=== PATIENT | male | born 1985 | race Caucasian/White ===

== ENCOUNTER 2023-08-16 20:46 | Inpatient (IN) | payer BC ==
[2023-08-17] MEDS ORDERED: Ondansetron PF 4 MG/2 ML Vial ONE (03:15)
[2023-08-17] MEDS ORDERED: Ketorolac Tromethamine 30 MG (1 mL) VIAL ONE (03:15)
[2023-08-17 07:54] LABS: Anion Gap 42 mmol/L (10-20); Carbon Dioxide 14 mmol/L (22-29); Chloride 84 mmol/L (98-107); Potassium 4.1 mmol/L (3.5-5.1); Sodium 136 mmol/L (136-145)
[2023-08-17 07:55] LABS: Calcium 8.2 mg/dL (7.6-10.4); Glucose 127 mg/dL (70-105)
[2023-08-17 08:23] LABS: Potassium 4.1 mmol/L (3.5-5.1); Sodium 136 mmol/L (136-145)
[2023-08-17 08:24] LABS: Albumin 4.2 g/dL (3.5-5.0); Anion Gap 42 mmol/L (10-20); BUN (Urea Nitrogen) 144 mg/dL (8.9-20.6); Bilirubin, Total 0.4 mg/dL (0.2-1.2); Calcium 8.2 mg/dL (7.6-10.4); Carbon Dioxide 14 mmol/L (22-29); Chloride 84 mmol/L (98-107); Globulin 3.7 g/dL (2.4-3.5); Glucose 127 mg/dL (70-105); Protein, Total 7.9 g/dL (6.0-8.3)
[2023-08-17 08:25] LABS: ALT (SGPT) 48 U/L (8-55); AST (SGOT) 37 U/L (5-34); Alkaline Phosphatase 105 U/L (40-110); Magnesium 3.1 mg/dL (1.6-2.6)
[2023-08-17 08:27] LABS: Calc. Creatinine Clearance 0 mL/min (70-130)
[2023-08-17 08:28] LABS: Troponin I 0.022 ng/mL (< 0.028)
[2023-08-17 08:29] LABS: Hematocrit 39.2 % (38.8-50.0); Hemoglobin 14.1 g/dL (13.5-17.5); Mean Corpuscular Hemoglobin 29.9 pg (27.0-33.0); Mean Corpuscular Volume 83.2 fl (81.2-95.1); Platelet Count 183 10x3/uL (130-400); RBC Distribution Width 12.9 % (11.5-14.5); Red Blood Cell (RBC) Count 4.71 10x6/uL (4.32-5.72); White Blood Cell (WBC) Count 7.6 10x3/uL (3.5-10.5)
[2023-08-17 08:30] LABS: %Basophils 0.3 % (0.0-2.0); %Eosinophils 0.4 % (0.0-6.0); %Lymphocytes 6.9 % (18.0-47.0); %Monocytes 5.8 % (0.0-10.0); %Neutrophils 86.3 % (40.0-75.0)
[2023-08-17 08:33] LABS: INR-International Normal Ratio 1.1; PTT 27.3 sec (22.0-33.0); Prothrombin Time 11.5 sec (9.5-12.1)
[2023-08-17] MEDS ORDERED: Ondansetron PF 4 MG/2 ML Vial IVP PRN (08:34)
[2023-08-17 08:35] LABS: BUN (Urea Nitrogen) 144 mg/dL (8.9-20.6); Calc. Creatinine Clearance 0 mL/min (70-130)
[2023-08-17] MEDS ORDERED: Senokot S 8.6-50 MG TAB PO PRN (08:36)
[2023-08-17] MEDS ORDERED: Acetaminophen 650 MG Suppository PR PRN (08:36)
[2023-08-17] MEDS ORDERED: Acetaminophen 325 MG TAB PO PRN (08:36)
[2023-08-17 08:37] LABS: Bilirubin Neg (Negative); Blood, Urine 150 (Negative); Clarity Clear (Clear); Glucose, Urine (Dipstick) 100 mg/dL (Negative); Ketone, Urine 5 mg/dL (Negative); Leukocyte 25 (Negative); Nitrite Negative (Negative); Protein, Urine (Dipstick) 500 mg/dl (Neg-Trace); Specific Gravity, Urine 1.025 (1.005-1.030); Urobilinogen Normal mg/dL (Less than 2)
[2023-08-17 08:59] LABS: Actual Bicarbonate (HCO3v) 15.7 mEq/L (22-28); Analyzer IN Cardio CS ER; Base Excess -11.3 mEq/L (-2 - +2); Calcium, Ionized (venous) 0.91 mmol/L (1.16-1.32); Chloride (VBG) 86 mmol/L (98-106); Hematocrit-VBG 41 % (42.0-52.0); Hemoglobin (Hb) 13.9 g/dL (13.2-17.3); Potassium (VBG) 4.02 mmol/L (3.70-5.30); Puncture Site Other Site; RapidComm Collect By LAB; Sodium 133 mmol/L (133-146)
[2023-08-17] MEDS ORDERED: Amlodipine 10 MG TAB PO SCH (09:00)
[2023-08-17 09:10] LABS: HBsAg Index 0.23 S/CO (0-0.99); Hep B Surf Ag Non-Reactive S/CO (NonReactive)
[2023-08-17 09:14] LABS: #Basophils 0.02 10x3/uL (0.0-0.2); #Eosinphils 0.03 10x3/uL (0.0-0.5); #Monocytes 0.44 10x3/uL (0.0-1.1); #Neutrophils 6.52 10x3/uL (1.5-8.4)
[2023-08-17 09:29] LABS: CAUTI Indications for Culture Pelvic or flank pain; Squamous Epithelial 0-3 HPF (0-3); Transitional Epithelial 0-3 HPF (None Seen)
[2023-08-17 09:30] LABS: Bacteria/HPF Rare-Few HPF (None Seen)
[2023-08-17 09:31] LABS: Urine Culture Reflex No No
[2023-08-17] MEDS ORDERED: Iopamidol 300 61% 100 ML VIAL FS ONE (12:38)
[2023-08-17 12:58] LABS: Albumin 3.2 g/dL (3.5-5.0); Anion Gap 36 mmol/L (10-20); Calcium 7.6 mg/dL (7.8-10.44); Carbon Dioxide 16 mmol/L (22-29); Chloride 85 mmol/L (98-107); Glucose 279 mg/dL (70-105); Potassium 3.7 mmol/L (3.5-5.1); Sodium 133 mmol/L (136-145)
[2023-08-17 13:08] LABS: Phosphorus 18.9 mg/dL (2.3-4.7)
[2023-08-17 13:28] LABS: BUN (Urea Nitrogen) 149 mg/dL (8.9-20.6)
[2023-08-17 13:32] LABS: Calc. Creatinine Clearance 0 mL/min (70-130)
[2023-08-17] MEDS: Sodium Bicarbonate 150 MEQ in Sterile Water 1,000 ML IV SCH (14:26)
[2023-08-17 15:36] LABS: HBSAB Concentration 679.61 mIU/mL; Hep B Core Total Ab NONREACTIVE (NonReactive); Hep B Core Total Index 0.12 S/CO (0-0.79); Hep B Surf AB REACTIVE (NonReactive); Hep C IgG Ab NONREACTIVE S/CO (NonReactive); Hep C Index 0.07 S/CO (0-0.79)
[2023-08-17] MEDS: Calcium Acetate 667 MG CAP PO SCH (18:05)
[2023-08-18] MEDS: Sodium Bicarbonate 150 mEq in Dextrose 5% IV SCH (04:01)
[2023-08-18 05:11] LABS: #Basophils 0.03 10x3/uL (0.0-0.2); #Eosinphils 0.08 10x3/uL (0.0-0.5); #Monocytes 0.45 10x3/uL (0.0-1.1); #Neutrophils 3.73 10x3/uL (1.5-8.4); %Basophils 0.6 % (0.0-2.0); %Eosinophils 1.6 % (0.0-6.0); %Lymphocytes 14.7 % (18.0-47.0); %Monocytes 8.9 % (0.0-10.0); %Neutrophils 73.8 % (40.0-75.0); Hematocrit 33.5 % (38.8-50.0); Hemoglobin 12.1 g/dL (13.5-17.5); Mean Corpuscular HGB CONC 36.1 g/dL (32.0-36.0); Mean Corpuscular Volume 82.9 fl (81.2-95.1); Mean Platelet Volume 9.9 fl (7.4-10.4); Platelet Count 138 10x3/uL (150-450); RBC Distribution Width 12.9 % (11.5-14.5); Red Blood Cell (RBC) Count 4.04 10x6/uL (4.32-5.72); White Blood Cell (WBC) Count 5.1 10x3/uL (3.5-10.5)
[2023-08-18 05:16] LABS: Albumin 3.2 g/dL (3.5-5.0); Anion Gap 35 mmol/L (10-20); Calcium 7.7 mg/dL (7.8-10.44); Carbon Dioxide 22 mmol/L (22-29); Chloride 85 mmol/L (98-107); Glucose 124 mg/dL (70-105); Iron 122 ug/dL (65-175); Iron Binding Capacity, Total 251 mcg/dL (261-462); Potassium 3.3 mmol/L (3.5-5.1); Sodium 139 mmol/L (136-145)
[2023-08-18 05:24] LABS: BUN (Urea Nitrogen) Greater than 125 mg/dL (8.9-20.6); Calc. Creatinine Clearance 0 mL/min (70-130); Critical Call Chemistry NUR.GC2 0520; Phosphorus 16.9 mg/dL (2.3-4.7)
[2023-08-18 05:38] LABS: Ferritin 935.49 ng/mL (22-322)
[2023-08-18] MEDS ORDERED: EPINEPHrine 1 MG/ML VIAL ONE (08:04)
[2023-08-18] MEDS ORDERED: Bupivacaine 0.25% HCL 30 ML VIAL ONE (08:04)
[2023-08-18] MEDS ORDERED: Famotidine/PF 20 mg/2ml Vial ONE (09:21)
[2023-08-18] MEDS ORDERED: Midazolam HCl 2 mg/2 ml Vial ONE (10:02)
[2023-08-18] MEDS ORDERED: PROPOFOL 20 ML ONE (10:03)
[2023-08-18] MEDS ORDERED: fentaNYL 50 mcg/mL 1 mL Vial ONE ×2 (10:03→10:21)
[2023-08-18] MEDS ORDERED: Lidocaine 1% PF 5 ML VIAL ONE (10:03)
[2023-08-18] MEDS ORDERED: KETAMINE 100 MG/ML (5ML VIAL) ONE (10:04)
[2023-08-18] MEDS ORDERED: Rocuronium Bromide 10 MG/ML (10ML VIAL) ONE (10:19)
[2023-08-18] MEDS ORDERED: PHENYLEPHRINE-NS 100 MCG/ML 10 ML SYRINGE ONE (10:28)
[2023-08-18] MEDS ORDERED: SUGAMMADEX SODIUM 200 MG/2 ML VIAL ONE (10:33)
[2023-08-18] MEDS ORDERED: CEFAZOLIN 1 GM VIAL ONE (10:33)
[2023-08-18] MEDS ORDERED: Ondansetron PF 4 MG/2 ML Vial ONE (10:37)
[2023-08-18] MEDS ORDERED: Dexamethasone 4 mg/ml Vial ONE (10:37)
[2023-08-18] MEDS: Potassium Chloride 20 MEQ TAB PO SCH ×2 (13:22→13:25)
[2023-08-18] MEDS: Amlodipine 5 MG TAB PO SCH (13:28)
[2023-08-18 16:28] LABS: Hemoglobin A1c 7.4 % (4.0-6.0)
[2023-08-18 17:22] LABS: Vitamin D, 25 Hydroxy 26.7 ng/ml (> 30.0)
[2023-08-18] MEDS: Tuberculin PPD 0.1 ML VIAL I-DERMAL SCH (18:07)
[2023-08-18] MEDS: HYDROcodone/Acetaminophen 5/325 mg Tablet PO PRN (18:15)
[2023-08-18] MEDS ORDERED: Heparin 10,000 UNITS/ 10 ML VIAL SLOW IVP PRN (19:21)
[2023-08-19 04:50] LABS: Albumin 3.3 g/dL (3.5-5.0); Anion Gap 27 mmol/L (10-20); BUN (Urea Nitrogen) 125 mg/dL (8.9-20.6); BUN/Creatinine Ratio 6.46; Calc. Creatinine Clearance 0 mL/min (70-130); Calcium 8.7 mg/dL (7.8-10.44); Carbon Dioxide 22 mmol/L (22-29); Chloride 93 mmol/L (98-107); Critical Call Chemistry NUR.FVB@0449; Estimated GFR 3; Glucose 186 mg/dL (70-105); Phosphorus 9.4 mg/dL (2.3-4.7); Potassium 3.4 mmol/L (3.5-5.1); Sodium 139 mmol/L (136-145)
[2023-08-19 05:11] LABS: #Basophils 0.03 10x3/uL (0.0-0.2); #Eosinphils 0.09 10x3/uL (0.0-0.5); #Monocytes 0.53 10x3/uL (0.0-1.1); #Neutrophils 3.64 10x3/uL (1.5-8.4); %Basophils 0.6 % (0.0-2.0); %Eosinophils 1.8 % (0.0-6.0); %Lymphocytes 14.8 % (18.0-47.0); %Monocytes 10.5 % (0.0-10.0); %Neutrophils 71.9 % (40.0-75.0); Hematocrit 35.2 % (38.8-50.0); Hemoglobin 11.9 g/dL (13.5-17.5); Mean Corpuscular HGB CONC 33.8 g/dL (32.0-36.0); Mean Corpuscular Hemoglobin 29.5 pg (27.0-33.0); Mean Corpuscular Volume 87.1 fl (81.2-95.1); Mean Platelet Volume 9.7 fl (7.4-10.4); Platelet Count 140 10x3/uL (150-450); RBC Distribution Width 13.2 % (11.5-14.5); Red Blood Cell (RBC) Count 4.04 10x6/uL (4.32-5.72); White Blood Cell (WBC) Count 5.1 10x3/uL (3.5-10.5)
[2023-08-19] MEDS: Potassium Chloride 20 MEQ TAB PO SCH (08:53)
[2023-08-19] MEDS: glipiZIDE XL 2.5 mg ER.TAB PO SCH (14:28)
[2023-08-19] MEDS: HYDROcodone/Acetaminophen 5/325 mg Tablet PO PRN (14:29)
[2023-08-19] MEDS: Sevelamer Carbonate 800 MG TAB PO SCH (17:21)
[2023-08-19] MEDS: Lidocaine 4% Patch TD SCH (17:21)
[2023-08-20 04:11] LABS: #Basophils 0.04 10x3/uL (0.0-0.2); #Eosinphils 0.21 10x3/uL (0.0-0.5); #Monocytes 0.49 10x3/uL (0.0-1.1); #Neutrophils 3.41 10x3/uL (1.5-8.4); %Basophils 0.8 % (0.0-2.0); %Eosinophils 4.2 % (0.0-6.0); %Lymphocytes 15.9 % (18.0-47.0); %Monocytes 9.9 % (0.0-10.0); %Neutrophils 68.6 % (40.0-75.0); Hemoglobin 10.6 g/dL (13.5-17.5); Mean Corpuscular HGB CONC 34.2 g/dL (32.0-36.0); Mean Corpuscular Hemoglobin 30.5 pg (27.0-33.0); Mean Corpuscular Volume 89.3 fl (81.2-95.1); Mean Platelet Volume 9.8 fl (7.4-10.4); Platelet Count 122 10x3/uL (150-450); RBC Distribution Width 13.2 % (11.5-14.5); Red Blood Cell (RBC) Count 3.47 10x6/uL (4.32-5.72)
[2023-08-20 04:42] LABS: Albumin 2.8 g/dL (3.5-5.0); Anion Gap 19 mmol/L (10-20); BUN (Urea Nitrogen) 76 mg/dL (8.9-20.6); BUN/Creatinine Ratio 5.55; Calc. Creatinine Clearance 0 mL/min (70-130); Calcium 8.7 mg/dL (7.8-10.44); Carbon Dioxide 23 mmol/L (22-29); Chloride 100 mmol/L (98-107); Estimated GFR 4; Glucose 101 mg/dL (70-105); Phosphorus 6.9 mg/dL (2.3-4.7); Potassium 3.4 mmol/L (3.5-5.1); Sodium 139 mmol/L (136-145)
[2023-08-20] MEDS: Transdermal Patch Removal TOP SCH (05:18)
[2023-08-20] MEDS: Ondansetron PF 4 MG/2 ML Vial IVP PRN (06:18)
[2023-08-20] MEDS: Sevelamer Carbonate 800 MG TAB PO SCH (07:58)
[2023-08-20] MEDS: Potassium Chloride 20 MEQ TAB PO SCH ×2 (08:04→14:47)
[2023-08-20 13:36] VITALS: BP 153/86; TEMP 98.1
[2023-08-20] MEDS: Cholecalciferol (Vitamin D3) 400 UNITS TAB PO SCH (14:40)
[2023-08-20] MEDS: Calcitriol 0.25 MCG CAP PO SCH (14:41)
[2023-08-20] MEDS: Amlodipine 10 MG TAB PO SCH (14:41)
[2023-08-20] MEDS: Carvedilol 6.25 MG TAB PO SCH (14:42)
[2023-08-20] MEDS: Ondansetron ODT 4 MG TAB PO PRN (14:47)
[2023-08-20] MEDS ORDERED: READ PPD TEST SITE PO SCH (16:00)
== END 2023-08-20 18:03 | disposition home or self-care (01) | DRG 673 ==
LOC: CSHERS 20:46 → CSHERHOLD 08-17 08:06 → CSHTELE 08-17 10:17
PROVIDERS: ADMIT Emergency Medicine; ATTEND Internal Medicine
PROC: 0JH60XZ Insertion of Tunneled Vascular Access Device into Chest Subcutaneous Tissue and Fascia, Open Approach (ICD-10-PCS; principal; 2023-08-18)
PROC: 02HV33Z Insertion of Infusion Device into Superior Vena Cava, Percutaneous Approach (ICD-10-PCS; 2023-08-18)
PROC: B5181ZA Fluoroscopy of Superior Vena Cava using Low Osmolar Contrast, Guidance (ICD-10-PCS; 2023-08-18)
PROC: 3E033XZ Introduction of Vasopressor into Peripheral Vein, Percutaneous Approach (ICD-10-PCS; 2023-08-18)
PROC: 5A1D70Z Performance of Urinary Filtration, Intermittent, Less than 6 Hours Per Day (ICD-10-PCS; 2023-08-18)
DX: N17.9 Acute kidney failure, unspecified (principal); G93.41 Metabolic encephalopathy; E87.21 Acute metabolic acidosis; I96 Gangrene, not elsewhere classified; J98.11 Atelectasis; Z68.41 Body mass index [BMI] 40.0-44.9, adult; N14.0 Analgesic nephropathy; T39.395A Adverse effect of other nonsteroidal anti-inflammatory drugs [NSAID], initial encounter; E21.3 Hyperparathyroidism, unspecified; I10 Essential (primary) hypertension; E78.5 Hyperlipidemia, unspecified; R73.03 Prediabetes; M25.551 Pain in right hip; F10.20 Alcohol dependence, uncomplicated; E66.9 Obesity, unspecified; R80.9 Proteinuria, unspecified; R04.0 Epistaxis; E55.9 Vitamin D deficiency, unspecified; E87.6 Hypokalemia; Z87.891 Personal history of nicotine dependence
CPT/HCPCS: 36415; 36416; 71045; 74177; 76770; 80053; 80069; 81001; 82306; 82550; 82570; 82728; 82805; 83036; 83540; 83550; 83735; 83970; 84156; 84300; 84484; 84540; 85025; 85610; 85730; 86140; 86580; 86704; 86706; 86803; 87340; 90935; 93005; 94760; 96361; 96374; 96375; A4217; C1750; G0257; J0171; J0665; J0690; J1100; J1642; J1644; J1885; J2250; J2405; J2704; J3010; J7070; Q0162; Q9967; S0028